=== PATIENT | male | born 1975 | race Caucasian/White ===

== ENCOUNTER → 2017-04-10 | Outpatient (CLI) | payer OTHER ==
--- NOTE | 2017-04-10 07:37 | MR ---
EXAMINATION TYPE: MR cervical spine wo con DATE OF EXAM: 04/10/2017 7:25 AM COMPARISON: NONE HISTORY: Cervicalgia Multiplanar MultiSpin echo imaging of the cervical spine was performed. Comparison: none C2-C3: No evidence for degenerative disc disease. No disc bulge/herniation or protrusion. No Canal stenosis. Foramina are patent bilaterally. C3-C4: No evidence for degenerative disc disease. No disc bulge/herniation or protrusion. No Canal stenosis. Foramina are patent bilaterally. C4-C5: There is evidence of mild disc desiccation. Left paracentral disc protrusion effaces the ventr al thecal sac with mild distortion of the ventral cervical spinal cord. Inspection of the thecal sac without overt stenosis at this time. Objective change cervical apophyseal joints resulting in mild ri ght foraminal encroachment. C5-C6: Moderate disc desiccation. Broad-based right paracentral disc protrusion. Left paracentral spo ndylosis. There is constriction of the thecal sac with a mild central stenosis identified. Bilateral foraminal encroachment right greater than left. C6-C7: Moderate disc desiccation. Posterocentral disc herniation with extrusion. Small amount of disc material extends posterior to the C6 vertebral segment. Effacement of the ventral thecal sac with mi ld ventral CORD contact and mild/moderate central stenosis. Early changes of compressive myelopathy n ot excluded. Right greater than left foraminal encroachment. C7-T1: No evidence for degenerative disc disease. No disc bulge/herniation or protrusion. No Canal stenosis. Foramina are patent bilaterally. Cervical segments are intact. There is normal alignment. Craniovertebral junction relationships are within normal limits. IMPRESSION: 1. Bilevel degenerative disc disease. 2. Central stenosis at C5-6 and C6-7. Early compressive myelopathy not excluded. 3. Disc protrusions and herniations as outlined above.
== END ==
LOC: RADMRIMAIN 06:54
PROVIDERS: ATTEND Physical Medicine & Rehabilitation
DX: M48.02 Spinal stenosis, cervical region (principal); M50.10 Cervical disc disorder with radiculopathy, unspecified cervical region; M50.122 Cervical disc disorder at C5-C6 level with radiculopathy
CPT/HCPCS: 72141

== ENCOUNTER → 2019-01-22 | Outpatient (CLI) | payer OTHER ==
--- NOTE | 2019-01-22 11:58 | CT ---
"EXAMINATION TYPE: CT angio thor/abd pel aorta DATE OF EXAM: 01/22/2019 COMPARISON: 11/11/2015 HISTORY: abnormal echogram CT DLP: 897.4 mGycm, Automated exposure control for dose reduction was used. CONTRAST: Performed injected with 100 mL of Isovue 370. TECHNIQUE: Axial images were obtained at 5 mm thick sections. Reconstructed images are reviewed on [employer] computer in the coronal plane. FINDINGS: Portion of the thyroid visualized is normal. No suspicious lung nodules or focal infiltrates are present. No enlarged mediastinal or hilar adenopathy is evident. The ascending aorta diameter at the level o f the main pulmonary artery is 2.6 cm. The main pulmonary artery diameter at the bifurcation is 2.[address] sections are obtained through the abdomen to beyond the aortic bifurcation. Aorta tapers normally throughout its visualized course. There is a lobular hypodensity within the body of the pancreas extending inferior to the pancreas. Cy sts could be considered. Cystic neoplasm should be considered. Additional workup is recommended with contrast MRI of the pancreas. This appears better visualized currently. CTA: 3-D reconstructed images performed separately by the technologist are reviewed. There is a three -vessel arch. The aorta at the aortic root is 3.5 cm. At the level of the main pulmonary artery the a robbie measures 3.8 cm. At the aortic arch the aorta measures 2.5 cm. Some minimal fusiform prominence of the mid descending thoracic aorta is present measuring 3.0 cm. At the diaphragm the aorta measures 2.5 cm. Aorta through the abdomen tapers normally. IMPRESSIONS: 1. Fusiform prominence of the ascending and descending thoracic aorta without aneurysmal dilatation. 2. Hypodense area within the pancreas could be some pancreatic cysts. Underlying mass is not excluded . Additional workup with contrast MRI is recommended. A [place] level critical message alert has been initiated for Ignacio Browne MD via the [employer] | Critical Results System on 01/22/2019 11:55 AM. This message alert has been sent to Ignacio forbes MD via the preferences provided by the clinician for the receipt of Radiology Critical Findings. Eileen essage ID [id number]."
== END | disposition home or self-care (01) ==
LOC: RADCTMAIN 07:23
PROVIDERS: ATTEND Internal Medicine Cardiovascular Disease
DX: I71.2 Thoracic aortic aneurysm, without rupture (principal)
CPT/HCPCS: 71275; 74174; Q9967

== ENCOUNTER → 2019-02-09 | Outpatient (CLI) | payer OTHER ==
--- NOTE | 2019-02-10 11:05 | MR ---
MR pancreas with and without contrast HISTORY: Abnormal CTA Multiplanar multisequence and postcontrast images through the pancreas following 12 cc Gadavist IV Correlation CT 01/22/2019, prior CT abdomen 11/11/2015 Cystic focus within the body of the pancreas seen on CT shows a multi lobular, honeycombing appearanc e and MRI with internal septations and measures approximately 3.4 x 2.7 x 3 cm in size. T1 signal is low, T2 signal is high. No definite communication with the pancreatic duct is identified. There is qu estionable enhancement of the septa. The spleen is enlarged. The liver is enlarged and shows signal drop on out of phase imaging congestiv e underlying hepatic steatosis. Small T2 bright focus within the posterior inferior right lobe of the liver likely represents cysts measuring only approximately 1 cm in size. There is a small hiatal hernia present. Lung bases are clear. Gallbladder is normal. Adrenal glands a re unremarkable. No retroperitoneal adenopathy. Aorta shows no aneurysm or dissection. Kidneys are un remarkable. IMPRESSION: Findings likely represent serous cystadenoma rather than mucinous cystadenoma, follow-up could be performed to assess for stability.
== END | disposition home or self-care (01) ==
LOC: RADMRIMAIN 14:23
DX: R93.3 Abnormal findings on diagnostic imaging of other parts of digestive tract (principal)
CPT/HCPCS: 74183; A9585

== ENCOUNTER → 2022-10-31 | Outpatient (CLI) | payer BC ==
--- NOTE | 2022-11-01 07:05 | CT ---
EXAMINATION TYPE: CT chest abdomen wo/w con DATE OF EXAM: 10/31/2022 COMPARISON: CTA aorta January 22, 2019 HISTORY: abn finding lung field ; mass. Disease of pancreas. CT DLP: 2566.1 mGycm. Automated Exposure Control for Dose Reduction was Utilized. CONTRAST: CT scan of the thorax, abdomen and pelvis is performed with oral and without and with IV Contrast, pa tient injected with 100ml mL of Isovue 300. FINDINGS: LUNGS: Mild parenchymal scarring in the lung bases. No suspicious pulmonary nodules or masses. There is no pleural effusion or pneumothorax seen. The tracheobronchial tree is patent. MEDIASTINUM: There are no greater than 1 cm hilar or mediastinal lymph nodes. No cardiomegaly or pe ricardial effusion is seen. Asymmetric small sized right thyroid redemonstrated with calcified left thyroid nodule. Consider thyroid ultrasound follow-up to further evaluate. LIVER/GB: No significant abnormality is appreciated. PANCREAS: Pancreas redemonstrates oval low dense 1.9 x 1.4 cm lesion in the anterior pancreatic body on axial image 67 grossly stable in size from MRI 2019. No new masses are evident. SPLEEN: No significant abnormality is seen. ADRENALS: Stable 1.0 cm right adrenal mass axial image 60 with diffuse signal dropout on MRI consiste nt with benign lipid rich adenoma.. KIDNEYS: No significant abnormality is seen. BOWEL: No significant abnormality is seen. LYMPH NODES: No greater than 1cm abdominal lymph nodes are appreciated. OSSEOUS STRUCTURES: No significant abnormality is seen. OTHER: No significant additional abnormality is seen. IMPRESSION: 1. Mild basilar parenchymal linear scarring. No acute pulmonary process. 2. Stable in size 2-3 cm low dense thin-walled cystic lesion in the anterior pancreatic body. Given o sandra 3 years stability is benign etiology is suspected. No new solid or cystic masses. 3. Calcified left thyroid nodule. Advise follow-up thyroid ultrasound to further evaluate and charact erize.
== END | disposition home or self-care (01) ==
LOC: RADCTMAIN 17:34
PROVIDERS: ATTEND Family Medicine
DX: E04.1 Nontoxic single thyroid nodule (principal); K86.2 Cyst of pancreas; R91.8 Other nonspecific abnormal finding of lung field
CPT/HCPCS: 71270; 74170; Q9967

== ENCOUNTER → 2022-11-19 | Outpatient (CLI) | payer BC ==
--- NOTE | 2022-11-19 19:33 | US ---
EXAMINATION TYPE: US thyroid st tissue head/neck DATE OF EXAM: 11/19/2022 COMPARISON: CT:10/31/22 CLINICAL HISTORY: E04.1 THYROID NODULE. Thyroid nodule seen on CT GLAND SIZE: Right Lobe: 4.2 x 1.6 x 1.8 cm Overall Parenchyma: homogenous Left Lobe: 4.7 x 2.0 x 2.2 cm Overall Parenchyma: homogeneous Isthmus Thickness: 0.5 cm NODULES RIGHT: # of nodules measured on right: 0 LEFT: # of nodules measured on left: 1 1. 2.9 X 1.9 x 1.7 cm, mid/inf mid, solid or almost completely solid, isoechoic nodule, which is wi quiana than tall, with smooth margins, with echogenic foci. ISTHMUS: # of nodules measured in the isthmus: 0 Bilateral neck scanned, no evidence of lymphadenopathy. IMPRESSION: Nodule demonstrates total score of 6 TI RADS level of TR 4 which is moderately suspicious. Fine-needl e biopsy advised.
== END | disposition home or self-care (01) ==
LOC: RADUSWWP 16:53
PROVIDERS: ATTEND Family Medicine
DX: E04.1 Nontoxic single thyroid nodule (principal)
CPT/HCPCS: 76536

== ENCOUNTER 2022-12-05 12:50 | Day surgery (SDC) | payer BC ==
[2022-12-05] MEDS ORDERED: ALPRAZolam 0.5 MG TAB PO PRN (13:22)
[2022-12-05 13:35] VITALS: TEMP 98.1
[2022-12-05 14:06] VITALS: PULSE 57
[2022-12-05 14:49] VITALS: RESP 16
[2022-12-05 14:50] VITALS: BP 115/71
--- NOTE | 2022-12-06 08:06 | US ---
PROCEDURE: Ultrasound-guided left thyroid nodule fine-needle aspiration DATE: 12/05/2022 DOLL WIG HACKLER: Dr. Damon CLINICAL HISTORY: L1, TI-RAD 4 nodule COMPARISON: Ultrasound 11/19/2022 ANESTHESIA: 1% local lidocaine PROCEDURE: The procedure, risks, and alternatives were discussed and all questions were answered. Written inform ed consent obtained. A complicating paperwork and verified for accuracy. Directed history and physica l exam performed prior to the procedure. Medication reconciliation performed by nursing personnel. Pr ocedure was performed using a cap, sterile gloves, hand hygiene, and Betadine for cutaneous antisepsi s. A cortical cande was performed with assisting personnel just prior to the procedure with the patien t's identity confirmed using 2 identifiers, confirming site and side. Limited grayscale ultrasound of the left thyroid lobe demonstrates a nodule with internal calcificati ons which corresponds to the nodule described on recent ultrasound. An appropriate skin entry site wa s marked, prepped, and draped in usual sterile fashion. 1% lidocaine was administered into the skin a nd deeper soft tissues. A 25-gauge needle was advanced into the nodule under continuous ultrasound gu idance and fine needle aspiration was performed. A total of 5 specimens were obtained, one of which w as used for Afirma testing. The patient tolerated the procedure well and there were no immediate complications. Blood loss was mi nimal. IMPRESSION: Successful, uncomplicated ultrasound-guided fine-needle aspiration of the left thyroid nodule.
== END 2022-12-05 14:45 | disposition home or self-care (01) ==
LOC: RADPROMAIN 12:50
PROVIDERS: ATTEND Family Medicine
DX: E04.1 Nontoxic single thyroid nodule (principal)
CPT/HCPCS: 10005; 88173; 88305

== ENCOUNTER → 2024-01-28 | Day surgery (SDC) | payer BC ==
[~2024-01-28] MED LIST: PROPOFOL 10 MG/ML 20 ML VIAL IV ONE
[2024-01-28] MEDS: LACTATED RINGERS 1,000 ML IV SCH (09:40)
[2024-01-28] MEDS: IV FLUID CONTINUATION 1,000 ML IV ONE (09:40)
[2024-01-28 09:41] LABS: Glucose,Whole Blood 117 mg/dL (70-110)
[2024-01-28 09:46] VITALS: TEMP 97
--- NOTE | 2024-01-28 10:06 | P.GSHP ---
History of Present Illness H&P Date: 01/28/24 Chief Complaint: Colon cancer screening 48-year-old male here for colonoscopy. Last colonoscopy 5 to 10 years ago. That was normal. Patient with intermittent rectal bleeding from hemorrhoids. Family history of colon cancer in his mother. Past Medical History Past Medical History: Asthma, Hearing Disorder / Deafness, Hypertension, Osteoarthritis (OA), Thyroid Disorder Additional Past Medical History / Comment(s): Aortic Anuerysm stable, thyroid nodule, pt states b/p usually high at dr office but no meds yet, ringing in left ear with some hearing loss. History of Any Multi-Drug Resistant Organisms: None Reported Past Surgical History: Tonsillectomy Additional Past Surgical History / Comment(s): colonoscopy Past Anesthesia/Blood Transfusion Reactions: No Reported Reaction Smoking Status: Current every day smoker - Past Family History Mother Family Medical History: Cancer Additional Family Medical History / Comment(s): colon Medications and Allergies Home Medications Medication Instructions Recorded Confirmed Type Albuterol Nebulized (Conc) 2.5 mg INHALATION DAILY 11/27/22 01/24/24 History [Ventolin Nebulized (Conc)] Albuterol Sulfate [Ventolin HFA] 1 - 2 puff INHALATION Q6H PRN 11/27/22 01/24/24 History Fluticasone Nasal Coleman [Flonase 1 spray EA NOSTRIL DAILY 01/24/24 01/24/24 History Nasal Coleman] Glucosamine Sulfate 1,000 mg PO DAILY 01/24/24 01/24/24 History Multivitamins, Thera [Multivitamin 1 tab PO DAILY 01/24/24 01/24/24 History (formulary)] Jber-3/Dha/Epa/Fish Oil [Fish Oil 1 each PO DAILY 01/24/24 01/24/24 History 1,000 mg Softgel] Allergies Allergy/AdvReac Type Severity Reaction Status Date / Time No Known Allergies Allergy Verified 01/24/24 15:42 Surgical - Exam Vital Signs Temp Pulse Resp BP Pulse Ox 97 F L 72 20 159/84 96 01/28/24 09:30 01/28/24 09:30 01/28/24 09:30 01/28/24 09:30 01/28/24 09:30 Physical exam: General: Well-developed, well-nourished HEENT: Normocephalic, sclerae nonicteric Abdomen: Nontender, nondistended Extremities: No edema Neuro: Alert and oriented Results - Labs Abnormal Lab Results - Last 24 Hours (Table) 01/28/24 Range/Units 09:37 POC Glucose (mg/dL) 117 H (70-110) mg/dL Assessment and Plan (1) Colon cancer screening Narrative/Plan: Will proceed with colonoscopy at this time. Current Visit: Yes Status: Acute Code(s): Z12.11 - ENCOUNTER FOR SCREENING FOR MALIGNANT NEOPLASM OF COLON SNOMED Code(s): 437989769
--- NOTE | 2024-01-28 10:25 | P.PCN ---
Date of Procedure: 01/28/24 Procedure(s) Performed: PREOPERATIVE DIAGNOSIS: Colon cancer screening with family history POSTOPERATIVE DIAGNOSIS: Small rectal polyp PROCEDURE: Colonoscopy with biopsy ANESTHESIA: MAC SURGEON: Baltazar Reeder M.D. SPECIMENS: Rectal polyp ENDOSCOPIC PROCEDURE: The patient was placed on the endoscopy table in the left decubitus position. The Olympus colonoscope was inserted into the anus and passed under direct visualization to the base of the cecum. The appendiceal orifice was visualized. From that point the scope was slowly withdrawn inspecting all surfaces carefully. There were no neoplastic inflammatory or polypoid lesions throughout the cecum, ascending, transverse, descending, and sigmoid colon. In the rectum there is a small superficial polyp that was removed using the cold biopsy forceps. The remainder of the rectum was normal. The patient had small internal hemorrhoids. No evidence of recent or active bleeding. Digital rectal examination was normal. The patient was taken to the recovery room in stable condition per anesthesia guidelines. RECOMMENDATIONS: Await biopsy results. Repeat colonoscopy 5 years.
[2024-01-28 10:52] VITALS: BP 114/69; PULSE 64; RESP 14
== END ==
LOC: ORWHC2ENDO 09:07
PROVIDERS: ATTEND Surgery
DX: Z12.11 Encounter for screening for malignant neoplasm of colon (principal); K62.1 Rectal polyp; I10 Essential (primary) hypertension; J45.909 Unspecified asthma, uncomplicated; K64.8 Other hemorrhoids; M19.90 Unspecified osteoarthritis, unspecified site; E07.9 Disorder of thyroid, unspecified; H91.90 Unspecified hearing loss, unspecified ear; I71.9 Aortic aneurysm of unspecified site, without rupture; F17.200 Nicotine dependence, unspecified, uncomplicated; Z80.0 Family history of malignant neoplasm of digestive organs; Z79.51 Long term (current) use of inhaled steroids; Z79.899 Other long term (current) drug therapy
CPT/HCPCS: 45380; J2704; 88305